=== PATIENT | female | born 1980 | race Caucasian/White ===

== ENCOUNTER → 2024-03-21 09:27 | Outpatient (REF) | payer OTHER, SELFPAY | LOC: HWWDC 09:27 | PROVIDERS: ATTENDING PHYSICIAN Nurse Practitioner Family; FAMILY PHYSICIAN Family Medicine | DX: Z12.31 Encounter for screening mammogram for malignant neoplasm of breast (principal) | CPT/HCPCS: 77063; 77067 ==

== ENCOUNTER → 2025-04-10 09:46 | Outpatient (REF) | payer OTHER, SELFPAY | LOC: HWWDC 09:46 | PROVIDERS: ATTENDING PHYSICIAN Advanced Practice Midwife; FAMILY PHYSICIAN Family Medicine | DX: Z12.31 Encounter for screening mammogram for malignant neoplasm of breast (principal) | CPT/HCPCS: 77063; 77067 ==